=== PATIENT | female | born 1950 | race Caucasian/White ===

== ENCOUNTER 2016-08-02 12:25 | Outpatient (CLI) | payer MEDICARE, BC ==
[2016-08-02 16:22] LABS: #Basophils 0.2 thou/uL (0.0-0.2); #Eosinphils 0.3 thou/uL (0.0-0.7); #Lymphocytes 2.3 thou/uL (1.20-3.40); #Monocytes 0.6 thou/uL (0.11-0.59); #Neutrophils 3.9 thou/uL (1.40-6.50); %Basophils 2.1 % (0.0-1.0); %Eosinophils 4.3 % (0.0-10.0); %Lymphocytes 31.9 % (21.0-51.0); %Monocytes 8.5 % (0.0-10.0); %Neutrophils 53.2 % (42.0-75.0); Hemoglobin 11.5 g/dL (12.0-16.0); Mean Corpuscular HGB CONC 32.3 g/dL (32.0-36.0); Mean Corpuscular Hemoglobin 28.7 pg (27.0-31.0); Mean Corpuscular Volume 88.9 fl (81.0-99.0); Mean Platelet Volume 7.5 fL (7.4-10.4); Platelet Count 233 thou/uL (130-400); RBC Distribution Width 14.1 % (11.5-14.5); Red Blood Cell (RBC) Count 3.99 mill/uL (4.20-5.40); White Blood Cell (WBC) Count 7.3 thou/uL (4.8-10.8)
[2016-08-02 16:41] LABS: ALT (SGPT) 19 U/L (0-55); AST (SGOT) 18 U/L (5-34); Alkaline Phosphatase 71 U/L (40-150); Anion Gap 17 mmol/L (10-20); BUN (Urea Nitrogen) 29 mg/dL (9.8-20.1); Bilirubin, Total 0.3 mg/dL (0.2-1.2); Calc. Creatinine Clearance 0 mL/min (70-130); Calcium 9.1 mg/dL (7.8-10.44); Carbon Dioxide 25 mmol/L (23-31); Cardiac Risk 6.4 (Less than 4.5); Chloride 102 mmol/L (98-107); Cholesterol 225 mg/dL (< 200 Desired); Estimated GFR-MDRD 56; Globulin 2.7 g/dL (2.4-3.5); Glucose 111 mg/dL (80-115); HDL Cholesterol 35 mg/dL (>60 Neg Risk); LDL Cholesterol, Calculated 145 mg/dL; Potassium 4.2 mmol/L (3.5-5.1); Protein, Total 6.7 g/dL (5.8-8.1); Sodium 140 mmol/L (136-145); Triglycerides 226 mg/dL (Less than 150)
[2016-08-02 17:05] LABS: Thyroid Stimulating Hormone 1.3615 uIU/mL (0.35-4.94)
[2016-08-02 18:37] LABS: Iron 53 ug/dL (50-170); Iron Binding Capacity, Total 440 mcg/dL (265-497)
[2016-08-02 18:55] LABS: Hep C IgG Ab Non-Reactive (NonReactive); Hep C Index 0.19 S/CO (0-0.79)
== END 2016-08-02 12:26 ==
LOC: LABLEX 12:25
PROVIDERS: ATTEND Family Medicine
DX: E78.5 Hyperlipidemia, unspecified (principal); D64.9 Anemia, unspecified; K21.9 Gastro-esophageal reflux disease without esophagitis; I10 Essential (primary) hypertension; E66.9 Obesity, unspecified; R79.89 Other specified abnormal findings of blood chemistry; Z72.89 Other problems related to lifestyle
CPT/HCPCS: 80053; 80061; 83540; 83550; 84443; 85025; 86803

== ENCOUNTER 2021-10-24 10:47 | Emergency (ER) | payer MEDICARE, BC ==
[2021-10-24] MEDS ORDERED: methylPREDNISolone Sod Succ/PF 125 MG/2 ML VIAL ONE (11:19)
== END 2021-10-24 12:29 | disposition home or self-care (01) ==
LOC: BURERS 10:47
DX: M54.12 Radiculopathy, cervical region (principal); I10 Essential (primary) hypertension; E78.00 Pure hypercholesterolemia, unspecified; Z79.899 Other long term (current) drug therapy; Z79.82 Long term (current) use of aspirin
CPT/HCPCS: 72125; 93005; 96372; J2930

== ENCOUNTER 2022-05-06 11:20 | Emergency (ER) | payer BC, MEDICARE ==
[2022-05-06] MEDS ORDERED: Ipratropium/Albuterol 3 ML NEB ONE (11:55)
[2022-05-06] MEDS ORDERED: Metoclopramide HCl 10 MG/2 ML VIAL ONE (11:59)
[2022-05-06] MEDS ORDERED: HYDROcodone/Acetaminophen 5/325 mg Tablet ONE (11:59)
[2022-05-06] MEDS ORDERED: Metoclopramide HCl 10 MG TAB ONE (11:59)
[2022-05-06] MEDS ORDERED: Ketorolac Tromethamine 30 MG/ML VIAL ONE (11:59)
== END 2022-05-06 13:14 | disposition home or self-care (01) ==
LOC: BURERS 11:20
DX: B34.9 Viral infection, unspecified (principal); E78.00 Pure hypercholesterolemia, unspecified; I10 Essential (primary) hypertension; Z79.899 Other long term (current) drug therapy
CPT/HCPCS: 96372; 99283; J1885; J2765; J7620